=== PATIENT | female | born 1980 | race Caucasian/White ===

== ENCOUNTER 2023-12-09 11:48 | Emergency (ER) | payer OTHER, SELFPAY ==
[2023-12-09 12:00] VITALS: BP 142/80; PULSE 91; RESP 16; TEMP 35.8; O2SAT 99
--- NOTE | 2023-12-09 12:16 | ED.URI ---
HPI - URI/Sore Throat General Chief Complaint: Upper Respiratory Infection Stated Complaint: Congestion/Sore Throat/Ear Pain Time Seen by Provider: 12/09/23 12:07 Source: patient and RN notes reviewed Mode of arrival: ambulatory Limitations: no limitations History of Present Illness HPI Narrative: Patient presents today complaining of subjective fever last night with chills, with congestion, sore throat, and right ear pain that started this morning. Currently rates her pain 2/10 and has taken a dose of [place] Plus without relief. Related Data Home Medications Medication Instructions Recorded Confirmed amlodipine 5 mg tablet mg 12/09/23 citalopram 20 mg tablet mg 12/09/23 lisinopril 40 mg tablet mg 12/09/23 omeprazole 20 mg capsule,delayed mg 12/09/23 release rimegepant 75 mg disintegrating mg 12/09/23 tablet (Nurtec ODT) sumatriptan succinate 50 mg tablet mg PO 12/09/23 topiramate 50 mg tablet mg 12/09/23 Allergies Allergy/AdvReac Type Severity Reaction Status Date / Time No Known Allergies Allergy Verified 12/09/23 12:03 Review of Systems Review of Systems: CONSTITUTIONAL: Denies body aches, or sweats.+ subjective fever, chills EYES: Denies visual changes, redness, or discharge. ENT: Denies rhinorrhea.+ congestion, sore throat, right ear pain CARDIOVASCULAR: Denies chest pain, palpitations, or edema. RESPIRATORY: Denies cough or dyspnea. GASTROINTESTINAL: Denies abdominal pain, nausea, vomiting, or diarrhea. GENITOURINARY: Denies dysuria or hematuria. SKIN: Denies rash, itching, or wounds. MUSCULOSKELETAL: Denies back pain, joint pain, or myalgia. NEUROLOGIC: Denies headache, numbness, tingling, or weakness. PSYCH: Denies depression or anxiety. PMFSH Comments At time of signature, I have reviewed and agree with nursing past medical, surgical, social and family history unless otherwise noted. Please see nursing chart for further information. There is no relevant family history pertinent to the presenting complaint Exam Narrative: GENERAL: Mildly ill-appearing, well-nourished, and in no acute distress. HEAD: Normocephalic, atraumatic. EYES: EOMI. No redness or drainage. Conjunctivae normal. ENT: Mucous membranes pink and moist. Nares congested. No rhinorrhea. TMs normal bilaterally. Throat normal. Uvula midline. NECK: Normal AROM. Supple. No lymphadenopathy. CHEST: No respiratory distress. Clear to auscultation. HEART: Regular rate and rhythm. No murmur appreciated. EXTREMITIES: Normal range of motion. No edema. SKIN: Warm, dry, no rash. Capillary refill normal. Normal skin turgor. NEURO: No focal deficits. Alert and oriented x3. Gait steady. PSYCH: Normal affect. No signs of depression or anxiety. Course Course Level of Care: Express Care Visit Vital Signs Vital signs: Vital Signs Temperature 96.5 F L 12/09/23 12:00 Pulse Rate 91 12/09/23 12:00 Respiratory Rate 16 12/09/23 12:00 Blood Pressure 142/80 H 12/09/23 12:00 Pulse Oximetry 99 12/09/23 12:00 Oxygen Delivery Room Air 12/09/23 12:00 Temperature 96.5 F L 12/09/23 12:00 Pulse Rate 91 12/09/23 12:00 Respiratory Rate 16 12/09/23 12:00 Blood Pressure 142/80 H 12/09/23 12:00 Pulse Oximetry 99 12/09/23 12:00 Oxygen Delivery Room Air 12/09/23 12:00 At time of signature, I have reviewed and agree with nursing past medical, surgical, social and family history unless otherwise noted. Please see nursing chart for further information. There is no relevant family history pertinent to the presenting complaint MDM - URI/Sore Throat MDM Narrative Medical decision making narrative: Patient declines testing for influenza and COVID-19 today. Symptoms likely viral in etiology. Discussed [id number] medication use induration of illness. No prescription medications indicated at this time. Anticipatory guidance given. Differential Diagnosis Differential diagnosis: [place]
== END 2023-12-09 12:30 | disposition home or self-care (01) ==
PROVIDERS: Emergency Provider Nurse Practitioner; PCP Family Medicine
DX: B34.9 Viral infection, unspecified (principal); I10 Essential (primary) hypertension
CPT/HCPCS: 99211; G0463

== ENCOUNTER 2024-06-09 09:02 | Outpatient (CLI) | payer OTHER, SELFPAY ==
[2024-06-09 19:45] LABS: Alanine Aminotransferase 28 U/L (6-35); Albumin Level 4.3 g/dL (3.5-5.1); Alkaline Phosphatase 81 U/L (38-126); Anion Gap 11 mmol/L (4-12); Aspartate Amino Transferase 31 U/L (14-36); Bilirubin,Total 0.8 mg/dL (0.2-1.3); Blood Urea Nitrogen 17 mg/dL (7-17); Calcium 8.9 mg/dL (8.4-10.2); Carbon Dioxide 23 mmol/L (22-30); Chloride 104 mmol/L (98-107); Cholesterol 186 mg/dL (0-200); Estimated Glomerular Filt Rate > 60; Glucose 110 mg/dL (65-110); HDL Direct 26 mg/dL; Potassium 3.8 mmol/L (3.4-5.0); Sodium 138 mmol/L (137-145); Triglycerides 234 mg/dL (<150)
[2024-06-09 19:58] LABS: LDL Cholesterol Direct 112 mg/dL
[2024-06-09 20:06] LABS: Hemoglobin A1C 6.2 % (<5.7); Vitamin D 25 Hydroxy 47.8 ng/mL
[2024-06-09 20:16] LABS: Thyroid Stimulating Hormone 0.814 uIU/mL (0.465-4.680)
[2024-06-09 20:23] LABS: Hematocrit 41.9 % (37.0-47.0); Immature Platelet Fraction Pct 15.2 % (0.9-11.2); Mean Corpuscular HGB Conc 33.4 g/dl (32-36); Mean Corpuscular Hemoglobin 29.9 pg (26-34); Mean Corpuscular Volume 89.5 fl (80-100); Mean Platelet Volume 14.6 fl (7.4-10.4); Platelet Count Result 145 k/mm3 (150-375); Red Blood Count 4.68 M/mm3 (4.2-5.4); Red Cell Distribution Width 13.4 % (11.5-14.5); White Blood Count 7.6 K/mm3 (4.5-10.0)
== END 2024-06-09 09:03 | disposition home or self-care (01) ==
LOC: ANHGOSHLAB 09:03
PROVIDERS: PCP Nurse Practitioner; Visit Provider Nurse Practitioner
DX: Z76.89 Persons encountering health services in other specified circumstances (principal); R73.03 Prediabetes; E55.9 Vitamin D deficiency, unspecified; E53.8 Deficiency of other specified B group vitamins
CPT/HCPCS: 36415; 80053; 80061; 82306; 82607; 83036; 84443; 85027; 85055